=== PATIENT | female | born 1975 | race Hispanic/Latino ===

== ENCOUNTER 2019-10-04 14:04 | Emergency (ER) | payer OTHER ==
[~2019-10-04] VITALS: Ht 160 cm; Wt 90.7 kg
[2019-10-04] MEDS ORDERED: TETANUS/DIPHTHERIA TOX ADULT 0.5 ML SYR IM ONE (14:15)
[2019-10-04] MEDS ORDERED: HYDROCODONE/APAP 7.5MG-325MG 1 EA TAB PO PRN (14:15)
--- NOTE | 2019-10-04 14:42 | Emergency Department Note ---
History of Present Illnes History of Present Illness Chief Complaint: General Medicine Complaints History of Present Illness This is a 43 year old female .c/o pw left foot Chief Complaint Comment HERE FOR PUNCTURE WOUND TO RIGHT UNDER FOOT. ACCIDENTALLY STEPPED ON ONE OF THE SHOWER HANDLES AND IT HAD THE SCREW EXPOSED. 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 Any updates have been documented here. Past Medical History Recent Fever: No Clinical Suspicion of Infectio: No New/Unexplained Change in Ment: No Past Medical History: Diabetes Past Surgical History: None Social History Alcohol Use: None Any Illegal Drug Use: No TB Exposure/Symptoms: No Family History Family history of heart diseas: No Other Last Tetanus: TODAY Any Pre-Existing Lines (PICC,: No Review of Systems Review of Systems Constitutional: no symptoms EENTM: no symptoms Cardiovascular: no symptoms Respiratory: no symptoms Gastrointestinal: no symptoms Genitourinary: no symptoms Musculoskeletal: as per HPI, other (c/po pw left foot ) Neurological: no symptoms Psychological: no symptoms Endocrine: no symptoms Hematological/Lymphatic: no symptoms Review of other systems All other systems reviewed and negative. Physical Exam Related Data Allergies: Coded Allergies: No Known Allergies (Unverified , 10/04/19) Triage Vital Signs Vital Signs Date Time Temp Pulse Resp B/P (MAP) Pulse Ox O2 Delivery O2 Flow Rate FiO2 10/04/19 14:10 97.4 75 16 152/81 97 Vital signs reviewed: Yes Physical Exam CONSTITUTIONAL Constitutional: well-developed, well-nourished, obese HENT HENT: normocephalic, atraumatic, oropharynx clear/moist, nose normal HENT L/R: left TM normal, right TM normal, left canal normal, right canal normal, left ext ear normal, right ext ear normal, left impacted cerumen, right impacted cerumen, left bulging TM, right bulging TM EYES Eyes: PERRL, conjunctivae normal NECK Neck: ROM normal PULMONARY Pulmonary: effort normal, breath sounds normal CARDIOVASCULAR Cardiovascular: regular rhythm, heart sounds normal, capillary refill normal, normal rate GASTROINTESTINAL Abdominal: soft, nontender, bowel sounds normal GENITOURINARY Genitourinary: exam deferred SKIN Skin: warm, dry MUSCULOSKELETAL Musculoskeletal: other (c/o pw let foot plantar dital area stepped on screw while bearfoot - no f/b noted no acitve bleeding noted ) NEUROLOGICAL Neurological: alert, oriented x 3, no gross motor or sensory deficits PSYCHOLOGICAL Psychological: mood/affect normal, judgement normal Results Imaging Impressions no f/b Critical Care Time Subsequent provider I assumed direction of critical care for this patient from another provider of my specialty. Assessment & Plan Reassessment Reassessment time: 14:40 Reassessment 43y f presented to ed c/o left foot pw - discussed plan of care w/ Dr Ahmadi - rad ordered Assessment & Plan Final Impression: (1) Puncture wound of left foot Assessment & Plan disucssed plan of care and f/u instructions 1. f/u w/ pcp in 1-2 days w/o fail 2. tylenol and motirn 3.return to ed as needed 4. keep wound clean and dry 5. keflex t#3 Depart Disposition: HOME, SELF-CARE Last Vital Signs Date Time Temp Pulse Resp B/P (MAP) Pulse Ox O2 Delivery O2 Flow Rate FiO2 10/04/19 14:10 97.4 75 16 152/81 97 Medications in the ED Acetaminophen/ Hydrocodone Bitart 1 ea ONCE PRN PO MODERATE PAIN (4-6) Last administered on 10/04/19at 14:31; Admin Dose 1 EA; Start 10/04/19 at 14:15; Stop 10/11/19 at 14:14 Tetanus/ Diphtheria Toxoids 0.5 ml ONCE ONCE IM Last administered on 10/04/19at 14:20; Admin Dose 0.5 ML; Start 10/04/19 at 14:15; Stop 10/04/19 at 14:16 MILLY ADRIAN NP October 04, 2019 14:42
--- NOTE | 2019-10-04 15:04 | Diagnostic Imaging Report ---
Exam: Left foot series, 3 views. Clinical History: Puncture wound. Comparison: None. Findings: 3 views of the left foot. There is normal bone mineralization. Negative for acute, displaced fracture or dislocation. Joint spaces are preserved. Large anterior and moderate posterior calcaneal enthesophytes. Incidental note is made of a bipartite tibial sesamoid. Soft tissue swelling in the dorsal aspect of the foot. No soft tissue defects or radiopaque foreign bodies are identified Impression: 1. Soft tissue swelling in the dorsal aspect of the foot. No soft tissue defect or radiopaque foreign bodies are noted. No acute bony abnormality. Signed by: Dr. Marck Oneal M.D. on 10/04/2019 3:01 PM
== END 2019-10-04 14:49 | disposition home or self-care (01) ==
LOC: ER 14:04
DX: S91.332A Puncture wound without foreign body, left foot, initial encounter (principal); W45.8XXA Other foreign body or object entering through skin, initial encounter; Y92.008 Other place in unspecified non-institutional (private) residence as the place of occurrence of the external cause; E11.9 Type 2 diabetes mellitus without complications
CPT/HCPCS: 90714; 99283